=== PATIENT | male | born 1965 | race Two or more races ===

== ENCOUNTER → 2024-12-06 | Outpatient (CLI) | payer OTHER, SELFPAY ==
--- NOTE | 2024-12-06 | XR_ITS ---
EXAMINATION: Cervical spine, 5 views Technique: Cervical spine AP, AP odontoid, lateral, bilateral obliques, 5 views Exam date and time: December 06, 2024 1222 hours INDICATIONS: Patient fell today with into the neck, neck pain. FINDINGS: Satisfactory alignment cervical vertebral bodies No cervical fracture. Intact odontoid. Mild disc disease C3-C4, C5-C6 Mild bilateral neural foraminal stenosis C3-C4, C5-C6 IMPRESSION: No cervical fracture
--- NOTE | 2024-12-06 | XR_ITS ---
Examination: Lumbar spine, 5 views Technique: Lumbar spine AP, lateral, coned lateral lower lumbar spine, bilateral obliques 5 views Exam date and time: December 06, 2024 1222 hours INDICATIONS: Patient fell today with injury to lower back, lower back pain. FINDINGS: Adequate alignment lumbar vertebral bodies on the lateral view No lumbar fracture Mild to moderate lumbar degenerative disc disease most prominent at L5-S1 Moderate lumbar spondylosis IMPRESSION: No lumbar fracture
== END | disposition home or self-care (01) ==
PROVIDERS: PCP Family Medicine; Referring Provider Physician Assistant; Visit Provider Physician Assistant
DX: S13.4XXA Sprain of ligaments of cervical spine, initial encounter (principal); S33.5XXA Sprain of ligaments of lumbar spine, initial encounter; W19.XXXA Unspecified fall, initial encounter
CPT/HCPCS: 72050; 72110